=== PATIENT | female | born 1955 | race Caucasian/White ===

== ENCOUNTER 2019-02-01 19:37 | Emergency (ER) | payer SELFPAY ==
[~2019-02-01] VITALS: Ht 152.4 cm; Wt 49.9 kg
[2019-02-01 19:44] VITALS: BP_SYST 160
--- NOTE | 2019-02-01 19:47 | NUR ---
Patient triaged and placed in ER hallway. VSS and patient appears in no acute distress at this time. Accompanied by ems, awaiting available bed, and MD notified of need for MSE.
--- NOTE | 2019-02-01 19:48 | NUR ---
Patient to ER bed 04 to gown for evaluation. Side rails up.
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
[2019-02-01] MEDS ORDERED: ONDANSETRON 4 MG ODT TAB PO ONE (20:00)
[2019-02-01] MEDS ORDERED: HYDROcodone/ACETAMIN 5-325 MG TAB (NORCO/ VICODIN) PO ONE (20:00)
[2019-02-01] MEDS ORDERED: DIPH-TET-PERTUS Vaccine 0.5 ML VIAL (ADACEL) I.M. ONE (20:00)
--- NOTE | 2019-02-01 20:00 | NUR ---
ER at bedside examining patient.
[2019-02-01 23:33] VITALS: BP_SYST 160
--- NOTE | 2019-02-01 23:33 | NUR ---
Patient given written and verbal discharge instructions and verbalizes understanding. ER MD discussed with patient the results and treatment provided. Patient in stable condition. ID arm band removed. Rx of Zofran ODT and [place] 5/325 given. Patient educated on pain management and to follow up with PMD. Pain Scale 3/10. Pt driven home by son. Opportunity for questions provided and answered. Medication side effect fact sheet provided.
== END 2019-02-01 23:33 | disposition home or self-care (01) ==
LOC: SED 19:37
DX: S22.32XA Fracture of one rib, left side, initial encounter for closed fracture (principal); S13.4XXA Sprain of ligaments of cervical spine, initial encounter; S80.12XA Contusion of left lower leg, initial encounter; V43.62XA Car passenger injured in collision with other type car in traffic accident, initial encounter; Y93.89 Activity, other specified; Y92.410 Unspecified street and highway as the place of occurrence of the external cause; Y99.8 Other external cause status
CPT/HCPCS: 70450; 71045; 72125; 73590; 90471; 90715; 99284; Q0162